=== PATIENT | female | born 1935 | race Two or more races ===

== ENCOUNTER 2018-06-29 11:42 | Outpatient (CLI) | payer OTHER | END 2018-06-29 11:44 | disposition home or self-care (01) | LOC: SONOGRAMA 11:42 | DX: D05.12 Intraductal carcinoma in situ of left breast (principal); N60.11 Diffuse cystic mastopathy of right breast; N60.12 Diffuse cystic mastopathy of left breast; R92.0 Mammographic microcalcification found on diagnostic imaging of breast; C77.3 Secondary and unspecified malignant neoplasm of axilla and upper limb lymph nodes ==

== ENCOUNTER 2018-07-12 09:18 | Outpatient (CLI) | payer OTHER | END 2018-07-12 10:00 | disposition home or self-care (01) | LOC: NUCLEAR 09:18 | DX: C50.412 Malignant neoplasm of upper-outer quadrant of left female breast (principal) | CPT/HCPCS: 78306; A9503 ==

== ENCOUNTER 2018-10-12 07:00 | Day surgery (SDC) | payer OTHER ==
[~2018-10-12] VITALS: Ht 165.1 cm; Wt 83.9 kg
[~2018-10-12 07:00] MED LIST: METFORMIN HCL850 MG PO; PANADOL EXTRA500 MG PO; PROCARDIA PO
[2018-10-12] MEDS ORDERED: NIFEDIPINE ER60 M1 PO (08:52)
== END 2018-10-13 08:00 | disposition home or self-care (01) ==
LOC: SURH 07:00 → CIR.AMB 07:00 → EDSTATUS 08:15 → SURH 08:15 → O/R 15:45 → SURH 15:45 → CIR.AMB 10-13 08:00 → O/R 10-13 11:52 → SURH 10-13 11:52
DX: C50.812 Malignant neoplasm of overlapping sites of left female breast (principal)

== ENCOUNTER 2022-06-23 08:16 | Outpatient (CLI) | payer OTHER ==
[~2022-06-23 08:16] MED LIST changes: +NIFEDIPINE ER60 M1 PO
== END 2022-06-23 08:21 | disposition home or self-care (01) ==
LOC: NUCLEAR 08:16
PROVIDERS: ATTEND Internal Medicine
DX: C50.812 Malignant neoplasm of overlapping sites of left female breast (principal); Z79.811 Long term (current) use of aromatase inhibitors
CPT/HCPCS: 78306; 78803; A9503